=== PATIENT | male | born 1990 | race Two or more races ===

== ENCOUNTER 2024-10-06 00:33 | Emergency (ER) | payer OTHER ==
[~2024-10-06] VITALS: Ht 185.4 cm; Wt 118.8 kg
[2024-10-06] MEDS ORDERED: TRIAMCINOLONE ACETONIDE 40 MG/ML VIAL IM STA (04:06)
[2024-10-06] MEDS ORDERED: NEURONTIN300 MG PO (07:22)
== END 2024-10-06 07:45 ==
LOC: ER 00:35
DX: M79.605 Pain in left leg (principal); M79.604 Pain in right leg

== ENCOUNTER → 2024-10-06 | Emergency (ER) | payer OTHER ==
[~2024-10-06] MED LIST: NEURONTIN300 MG PO
== END | disposition home or self-care (01) ==
LOC: ER 14:02
DX: M79.605 Pain in left leg (principal); M79.604 Pain in right leg